=== PATIENT | male | born 1955 | race Caucasian/White ===

== ENCOUNTER 2019-02-07 16:10 | Inpatient (IN) | payer OTHER ==
[~2019-02-07] VITALS: Ht 172.7 cm; Wt 64.3 kg
[2019-02-07] VITALS (27 sets, daily range): BP systolic 59–136; BP diastolic 40–112
[~2019-02-07 16:10] MED LIST: ADVIL PM CAPLE1 EACH; ALPRAZOLAM 0.50.5 M1; B-COMPLEX-VITA1 EACH; BUSPAR 5 MG TABL5 M1 PO; COZAAR100 MG PO; DYAZIDE PO; FOLIC ACID 40400 MCG PO; HYDROCHLOROTH12.5 MG PO; LEVEMIR SUBQ; LOSARTAN POTAS100 MG PO; NORVASC10 MG PO; NOVOLOG100 UNIT/1; PEPTO-BISMOL262 M1; ZANTAC 150MG T150 M1
[2019-02-07 16:39] LABS: ABSOLUTE NEUTROPHILS 4.5 thou/uL (1.4-8.2); BASOPHILS 0.3 % (0.0-2.0); EOSINOPHILS 0.1 % (0.0-3.0); HEMOGLOBIN 13.1 gm/dL (14.0-18.0); LYMPHOCYTES 16.8 % (24.0-44.0); MCH 32.9 pg (26.0-34.0); MCHC 34.6 g/dL (28.0-37.0); MCV 95.1 fL (80.0-100.0); MONOCYTES 3.1 % (1.0-8.0); POLYS 79.7 % (36.0-66.0); RBC 3.99 mil/uL (4.50-6.00); RDW 12.3 % (10.5-14.5); WBC 5.6 thou/uL (4.0-11.0)
[2019-02-07 16:49] LABS: ALBUMIN 3.1 g/dL (3.4-5.0); CALCIUM 7.9 mg/dL (8.5-10.1); CREATININE 0.9 mg/dL (0.7-1.3); DIRECT BILIRUBIN 0.5 mg/dL (<0.1-0.3); MAGNESIUM 1.9 mg/dL (1.8-2.4); POTASSIUM 4.2 mmol/L (3.5-5.1); TOTAL BILIRUBIN 2.6 mg/dL (<0.1-1.0); TOTAL PROTEIN 5.7 g/dL (6.4-8.2)
[2019-02-07 16:54] LABS: AMP/METHAMP Negative (Negative); BARBITURATES Negative (Negative); BENZODIAZEPINES Negative (Negative); COCAINE Negative (Negative); METHADONE Negative (Negative); OPIATES Negative (Negative); PCP Negative (Negative)
[2019-02-07 17:03] LABS: PLATELET COUNT 87 thou/uL (150-400)
[2019-02-07 17:04] LABS: LARGE PLATELETS RARE
--- NOTE | 2019-02-07 17:22 | NUR ---
100MG ETOMIDATE IV 10MG SUCCS IV 25 AT THE GUM ALL ABOVE PER VERBAL ORDER FROM DR ROBLERO
[2019-02-07 19:02] LABS: BE(vivo) -5.5 mmol/L (-2 to +3); HCO3 17.3 mmol/L (22.0-26.0); PCO2 27.4 mmHg (35.0-45.0); PO2 113.4 mmHg (80.0-100.0); pH 7.419 (7.360-7.450); sO2 98.3 % (92.0-98.0)
--- NOTE | 2019-02-07 19:10 | NUR ---
PICC ORDERED PER TELEPHONE ORDER FROM DR CARMENCITA VALLE FOLLOWING TO ICU PICC RN AT BEDSIDE FOR PLACEMENT IN ICU REPORT GIVEN TO LILIA MORSE
--- NOTE | 2019-02-07 19:58 | 2DMMODE ---
[facility] [address] [place] [address] 2 D/M-MODE ECHOCARDIOGRAM Name: CHAVA MCBRIDE Room #: 243-P [facility]#: [id number] ������������� Admission: 02/07/19 ������������� Attend Phys: Tomas Randall Discharge: ��� ������������� ��� Date of : 57 Date of Service: [birth year] �� Report #: [id number] �������� ��������������������������������������������[id number] THIS REPORT FOR: //name// APPROVED REPORT Study performed: 02/07/2019 18:51:48 EXAM: Comprehensive 2D, Doppler, and color-flow Echocardiogram Patient Location: Bedside Room #: ICU Status: stat BSA: 1.58 HR: 107 bpm BP: 121/78 mmHg Rhythm: Tachycardia Other Information Study Quality: Adequate Technically limited study due to patient on ventilator, low parasternal window. Risk Factors: Cardiac Risk Factors: HTN, Smoking, ETOH Indications Elevated Troponin EKG Changes DTs 2D Dimensions IVSd: 7.98 (7-11mm) LVOT Diam: 19.00 (18-24mm) LVDd: 48.51 mm PWd: 10.80 (7-11mm) LVDs: 44.59 (25-40mm) LV Single Plane 4CH: 25.65 % LV Single Plane 2CH: 26.95 % Biplane EF: 25.4 % Volumes Left Atrial Volume (Systole) Single Plane 4CH: 20.74 mL Single Plane 2CH: 37.91 mL LA ESV Index: 21.00 mL/m2 Aortic Valve AoV Peak Pa.: 1.00 m/s [facility] [place] [address] [place] [address] 2 D/M-MODE ECHOCARDIOGRAM Name: RAECHAVA G Room #: 243-P [facility] .R.#: [id number] ������������� Admission: 02/07/19 ������������� Attend Phys: Tomas Randall Discharge: ��� ������������� ��� Date of : 57 Date of Service: 02/[birth year]191956 �� Report #: [id number] �������� ��������������������������������������������[id number] AO Peak Gr.: 3.99 mmHg LVOT Max P.29 mmHg LVOT Max V: 0.76 m/s TIFFANY Vmax: 2.08 cm2 Pulmonary Valve PV Peak Pa.: 0.76 m/s PV Peak Gr.: 2.32 mmHg Tricuspid Valve TR Peak Pa.: 2.07 m/s TR Peak Gr.: 17.20 mmHg Left Ventricle The left ventricle is normal size. Severe global hypokinesis. There is normal left ventricular wall thickness. Left ventricular systolic function is severely decreased. LVEF is 25%. This study is not technically sufficient to allow evaluation of the LV diastolic function. Right Ventricle The right ventricle is normal size. The right ventricular systolic function is normal. Atria The left atrium size is normal. The right atrium size is normal. Aortic Valve The aortic valve is normal in structure. No aortic regurgitation is present. There is no aortic valvular stenosis. Mitral Valve The mitral valve is normal in structure. There is no mitral valve regurgitation noted. No evidence of mitral valve stenosis. Tricuspid Valve The tricuspid valve is normal in structure. Mild tricuspid regurgitation. Tricuspid regurgitation jet measures 17 mmHg. Unable to assess PA pressure. Pulmonic Valve The pulmonary valve is normal in structure. There is no pulmonic valvular regurgitation. Great Vessels The aortic root is normal in size. Pt. on ventilator. IVC is normal in size. [facility] [place] [address] 2 D/M-MODE ECHOCARDIOGRAM Name: CHAVA MCBRIDE Room #: 243-P [facility] M.R.#: [id number] ������������� Admission: 02/07/19 ������������� Attend Phys: Tomas Randall Discharge: ��� ������������� ��� Date of : 57 Date of Service: 02/[birth year]/191956 �� Report #: [id number] �������� ��������������������������������������������[id number] Pericardium There is no pericardial effusion. <Conclusion> The left ventricle is normal size. LVEF is 25%. Severe global hypokinesis. The aortic valve is normal in structure. The mitral valve is normal in structure. The tricuspid valve is normal in structure. Mild tricuspid regurgitation. Tricuspid regurgitation jet measures 17 mmHg. Unable to assess PA pressure. The pulmonary valve is normal in structure. There is no pericardial effusion. ��������������������������������������������� <ELECTRONICALLY SIGNED> ���������������������������������������� By: Chris Rodriges MD ��������������������������������������������� [birth year] 58 Chris Rodriges MD /INF
--- NOTE | 2019-02-07 20:04 | NUR ---
RECEIVED ORDER FOR PICC, LABS REVIEVED, A CONSENT WAS OBTAINED BY LILIA OLIVER FOR THE ED. A PICC WAS PLACED PER PROTOCOL OF THE FACILITY BY STERILE FASHION. PLACEMENT WAS THEN VERIFIED VIA CXR. PICC WAS RELEASED FOR IMMEDIATE USE TO THE INSTITUTIONAL COMMODITY ANALYST.
[2019-02-08] VITALS (89 sets, daily range): BP systolic 71–153; BP diastolic 40–84
[2019-02-08 00:16] LABS: CREATININE 0.5 mg/dL (0.7-1.3)
[2019-02-08 00:25] LABS: POTASSIUM 2.3 mmol/L (3.5-5.1)
[2019-02-08 05:25] LABS: WBC 5.6 thou/uL (4.0-11.0)
[2019-02-08 05:28] LABS: ABSOLUTE NEUTROPHILS 4.5 thou/uL (1.4-8.2); BASOPHILS 0.7 % (0.0-2.0); EOSINOPHILS 0.4 % (0.0-3.0); HEMATOCRIT 36.9 % (42.0-52.0); LYMPHOCYTES 14.9 % (24.0-44.0); MCH 32.6 pg (26.0-34.0); MCHC 35.2 g/dL (28.0-37.0); MCV 92.7 fL (80.0-100.0); MONOCYTES 3.2 % (1.0-8.0); POLYS 80.8 % (36.0-66.0); RBC 3.98 mil/uL (4.50-6.00); RDW 12.5 % (10.5-14.5)
[2019-02-08 05:40] LABS: ALBUMIN 2.3 g/dL (3.4-5.0); CALCIUM 7.1 mg/dL (8.5-10.1); CREATININE 0.6 mg/dL (0.7-1.3); MAGNESIUM 1.3 mg/dL (1.8-2.4); TOTAL BILIRUBIN 1.7 mg/dL (<0.1-1.0); TOTAL PROTEIN 4.3 g/dL (6.4-8.2)
[2019-02-08 06:46] LABS: PLATELET COUNT 196 thou/uL (150-400)
--- NOTE | 2019-02-08 08:04 | NUR ---
PT ADMITTED TO ICU ROOM 243 at 1845. Pt intubated with #7.5 ETT, 25 cm at the teeth, on vent Tv 550, AC 14, Peep 5. FiO2 intially at 60% but able to titrate down through shift to 40%. O2 sat remains > 95%. Monitor has been sinus rhythm, occasional sinus tachycardia, with rates 70 to 110. OG remains patent to LIS, scant brown liquid drainage. Henderson patent; pt had 2950 cc out this shift. Pt remains on Versed gtt and bilateral soft wrist restraints. When sedation lightened pt will attempt to pull out ETT and OG as well as kicks legs over siderails of bed. Suctioning thin brown secretions from ETT about every 2-4 hours.
[2019-02-08 14:27] LABS: MAGNESIUM 1.8 mg/dL (1.8-2.4)
--- NOTE | 2019-02-08 21:30 | NUR ---
PATIENT ASSESSMENTS AND VITAL SIGNS DOCUMENTED. NURSE INFORMED PHYSICIAN OF HYPOTENSION, THEN CARDIOLOGY NOTIFIED. DOBUTAMINE GTT INITIATED. PATIENT HAS BEEN MORE CALM WITH PRECEDEX GTT, VERSED GTT HAS BEEN ABLE TO BE WEANED DOWN. GOAL IS TO TITRATE OFF OF VERSED. FAMILY UPDATED ABOUT PLAN OF CARE. HE WAS VERY AGGITATED AND RESTLESS THIS EARLY AM, HOWEVER HAS BEEN MORE CALM. HE DID FOLLOW COMMANDS THIS AM. PER CARDIOLOGY, PLAN IS TO KEEP HIM SEDATED FOR NOW UNTIL FINISH DETOX, THEN TO LIGHTEN UP SEDATION AND PROCEEDE WITH FUTURE TREATMENTS. HE HAS ADEQUATE URINE OUTPUT. ELECTROLYTE PROTOCOL IN PLACE AND POTASSIUM AND MAGNESIUM IS BEING REPLACED. PLAN OF CARE IS TO CONTINUE TO MONITOR PATIENT VITAL SIGNS AND ADJUST GTTS ACCORING TO PHYSICIAN ORDER.
[2019-02-09] VITALS (33 sets, daily range): BP systolic 108–165; BP diastolic 68–112
[2019-02-09 04:18] LABS: ALBUMIN 2.1 g/dL (3.4-5.0); CALCIUM 7.4 mg/dL (8.5-10.1); CREATININE 0.6 mg/dL (0.7-1.3); MAGNESIUM 1.5 mg/dL (1.8-2.4); POTASSIUM 3.6 mmol/L (3.5-5.1); TOTAL BILIRUBIN 1.5 mg/dL (<0.1-1.0); TOTAL PROTEIN 4.3 g/dL (6.4-8.2)
--- NOTE | 2019-02-09 04:20 | NUR ---
ASSUMED CARE OF PT AT 1900. PT SEDATED ON PRECEDEX AND VERSED GTT. SPOKE TO DR PENA AT APPROXIMATELY 2000. UPDATED ON PATIET'S STATUS. PLAN TO TITRATE VERSED GTT OFF AND LEAVE PT ON PRECEDEX GTT. PT CALM THROUGH OUT THE NIGHT. PT WITH BILATERAL SOFT WRIST RESTRAINS DUE TO IMPULSIVENESS. PT DID HAVE SOME PERIODS OF RESTLESSNESS AND MANAGED TO SIT UP A COUPLE OF TIMES IN BED. PT WAS GIVEN 4 MG OF MORPHINE AT 0203, DUE TO PT NODDING YES TO PAIN AND CPOT SCORE OF 5. PT PREVIOUSLY ASSESSED AT 0300 HE WAS CALM AND SLEEPING. AT 0325 VENT ALARMS WENT OFF. RN ASSESSED PT AND PT HAD MANAGED TO SELF EXTUBATE. RT CALLED STAT TO THE ROOM. PT O2 SAT 99-100% ON RA. PT PLACED ON 40% FACE SHIELD AT THAT TIME. PT TALKING. ALERT ONLY TO SELF. HE IS CONFUSED. DR PENA CALLED AND UPDATED AT 033. NO ORDERS GIVENAT THIS TIME. WILL CONTINUE TO MONITOR.
[2019-02-09 04:22] LABS: TROPONIN-I 1.31 ng/mL (<0.06)
--- NOTE | 2019-02-09 08:40 | EKG ---
[address] [address] ELECTROCARDIOGRAM REPORT Name: IMKE MCBRIDEALD Alex Room #: 243-P ADM IN M.R.#: [id number] ������������������ Admission: 02/07/19 ������������������ Attend Phys: Tomas Franco Discharge: ������������������ Date of : 57 Report #: [id number] ����������������������������������������������������������������� [id number] THIS REPORT FOR: //name// [facility] ED Test Date: 2019-02-07 Test Time: 16:27:28 Pat Name: CHAVA MCBRIDE Department: Room: 243 Gender: M Psychology Clinician: MADELINE : 1955 Requested By: Perri Jang Order Number: [id number] MD: Lb Frank Measurements Intervals [place] Rate: 127 P: 0 MD: 62 QRS: -58 QRSD: 107 T: 89 QT: 438 QTc: 638 Interpretive Statements Sinus tachycardia Inferior infarct, old Baseline wander in lead(s) III,aVF Electronically Signed On 02-09-2019 8:40:11 CDT by Lb Frank [email or web address] ��������������������������������������������� <ELECTRONICALLY SIGNED> ���������������������������������������� By: Lb Frank MD ��������������������������������������������� 02/09/19 0840 D: [id number] Lb Frank MD /NIKA
--- NOTE | 2019-02-09 16:15 | NUR ---
ASSUMED CARE OF PT AT 0645. SELF EXTUBATED OVER NIGHT. MARICEL ROOM AIR. PASSED SWALLOW EVAL WITH ST, START PO DIET AND MEDS. CONFUSED BUT REORIENTS. DC RESTRAINTS. WILL WEAN OF DOBUTAMINE TO KEEP SBP >100. PT CONCERNED ABOUT MISSING A MEETING WITH A BANKER TOMORROW, USING PHONE AT BEDSIDE TO CALL EX .
--- NOTE | 2019-02-09 17:23 | NUR ---
PT ADMITTED RELATED TO SYNCOPAL EPISODE, ETOH WITHDRAWL, ELEVATED TROPONIN. CM REVIEWED CHART AND SPOKE WITH CARE TEAM. CM SPOKE WIHT PT'S EX-. SHE INDICATED THAT PT RESIDES IN A HOUSE ALONE. 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 SHE INDICATED PT HAS HISTORY OF ETOH ABUSE. SHE INDICATED THAT SHE WOULD ANTICIPATE PT DISCHARGING HOME ONCE MEDICALLY STABLE AND THAT SHE MAY BE WILLING FOR PT TO COME STAY WITH HER IF NEEDED. CM TO FOLLOW INDICATED WITH DC PLANNING.
[2019-02-10] VITALS (22 sets, daily range): BP systolic 107–140; BP diastolic 65–87
[2019-02-10 04:45] LABS: CALCIUM 7.5 mg/dL (8.5-10.1); CREATININE 0.6 mg/dL (0.7-1.3); PHOSPHORUS 1.2 mg/dL (2.5-4.9); POTASSIUM 3.6 mmol/L (3.5-5.1)
--- NOTE | 2019-02-10 05:03 | NUR ---
ASSUMED CARE OF PT AT 1900. PT INITIALLY ONLY ORIENTED TO SELF. PT DOES WAKE UP VERY STARTLED AND ANXIETY QUICKLY INCREASES AFTER THAT. AT 2340, RN WENT IN ROOM TO CHECK BLOOD SUGAR. RN INFORMED PT OF WHAT HE WAS PERFORMING AND PT WAS DROWSY SLEEPING AND REPLIED "OK." PT BECAME VERY RESTLESS AFTER BLOOD SUGAR WAS CHECKED. PT REQUESTED THAT WE CALL SECURITY. SECURITY WAS CALLED TO THE ROOM. RNPRECIOUS, ASSISTED PT WITH MEDICATIONS AND INSULIN ADMINISTRATION. PT's FAMILY WAS CONTACTED AND THEY SPOKE TO PT. PT RESPONDED WELL TO THIS. HE HAS REMAINED CALMED SINCE INCIDENT. WILL CONTINEU TO MONITOR.
--- NOTE | 2019-02-10 16:29 | NUR ---
CARE TEAM INDICATED PT IS PROGRESSING TOWARD GOAL OD DISCHARGE. CM TO FOLLOW INDICATED WITH DC PLANNING.
--- NOTE | 2019-02-10 19:30 | NUR ---
SHIFT SUMMARY: PT PROGRESSING, DOBUTAMINE AND PRECEDEX OFF, LIBRIUM PO, ALERT/ORIENTED, REDIRECTABLE WHEN IRRITABLE OR IMPULSIVE, SB/SR, ROOM AIR, TOLERATING MEALS, ADEQUATE URINE PER FARIA. BLANQUITA MCPHERSON- CALLED TO INQUIRE REGARDING PT STATUS AND WAS ALSO PRESENT. UPDATED ON CARES. PT VERY RESPONSIVE TO SUPPORT GIVEN BY BLANQUITA.
[2019-02-11] VITALS (26 sets, daily range): BP systolic 109–160; BP diastolic 66–97
--- NOTE | 2019-02-11 06:40 | NUR ---
SHIFT NOTE PT ASSESSMENT AND VITALS ORDERED. PT TURNS SELF IN BED. PT HAS NO COMPLAINTS OF PAIN, SO, CHEST PAIN, AND NV. PT ON RA. PT STEADY STAND BY ASSIST TO BSC. WILL CONTINUE TO MONITOR TILL THE END OF THE SHIFT.
--- NOTE | 2019-02-11 15:37 | NUR ---
PROGRESSING. ALERT/ORIENTED, COOPERATIVE, NO TREMORS/SEIZURE ACTIVITY, ST/SR, ROOM AIR WITH RESP EVEN AND UNLABORED, GOOD APPETITE, VOIDING PER URINAL OR TOILET, LOOSE STOOLS. BLANQUITA, EX PRESENT AND PROVIDING SUPPORT.
[2019-02-11 17:38] LABS: HEMOGLOBIN 12.4 gm/dL (14.0-18.0); MCH 32.8 pg (26.0-34.0); MCHC 35.4 g/dL (28.0-37.0); MCV 92.7 fL (80.0-100.0); RBC 3.77 mil/uL (4.50-6.00); RDW 12.5 % (10.5-14.5); WBC 3.6 thou/uL (4.0-11.0)
[2019-02-11 17:51] LABS: ALBUMIN 2.2 g/dL (3.4-5.0); CALCIUM 7.6 mg/dL (8.5-10.1); CREATININE 0.6 mg/dL (0.7-1.3); TOTAL BILIRUBIN 1.3 mg/dL (<0.1-1.0); TOTAL PROTEIN 4.8 g/dL (6.4-8.2)
[2019-02-11 18:00] LABS: POTASSIUM 2.9 mmol/L (3.5-5.1)
--- NOTE | 2019-02-11 18:22 | NUR ---
REPORT TO LILIA CURIEL. CRITICAL K 2.9- KCL IV INFUSING. PT TRANSFERRED PER WHEELCHAIR TO CCU RM #[id number].
--- NOTE | 2019-02-11 19:33 | NUR ---
ASSUMED CARE AT 1830, TRANSFERRED FROM ICU AT 1830. PATIENT WAS ORINETED TO THE ROOM. ZOSYN AND POTTASIUM STARTED THROUGH THE RIGHT UPPER ARM PICC LINE. BED ALARM ON, ON TELEETRY MONITORING. REPORT GIVEN TO NIGHT NURSE. WILL CONTINUIE TO ASSESS AND ASSIST WITH ADLs NEEDED.
[2019-02-12 04:45] VITALS: BP 145/91
[2019-02-12 04:47] LABS: MAGNESIUM 1.3 mg/dL (1.8-2.4)
[2019-02-12 04:49] LABS: POTASSIUM 2.7 mmol/L (3.5-5.1)
--- NOTE | 2019-02-12 05:45 | NUR ---
PT STILL HAVING EPISODE OF CONFUSION AND FOERGETFUL, WILL BE NPO TOMORROW FOR CARDIAC CATH, STILL HAS LOTS OF QUESTIONS, CONSENT NOT SIGNED YET, POTASSIUM DROPPED TO 2.7, PER LYTES PROTOCOL IS BEING REPLACED, MG IS 1.3, PER LYTES PROTOCOL WAS GIVEN PO MAGNESIUM. UP WITH ASSIST, GAIT SLOW, VOIDING IN THE TOILET, MONITORED.
[2019-02-12 07:25] VITALS: BP 166/97
[2019-02-12 11:05] VITALS: BP 138/92
[2019-02-12 15:30] VITALS: BP 118/82
[2019-02-12 17:56] LABS: MAGNESIUM 1.5 mg/dL (1.8-2.4); POTASSIUM 3.4 mmol/L (3.5-5.1)
--- NOTE | 2019-02-12 19:29 | NUR ---
ASSUMED CARE OF PATIENT AT 0700. PATIENT IS SOMEWHAT CONFUSED AT TIMES, HOWEVER HE IS A&O X 4. PATIENT IS IMPULSIVE, BED ALARM REMAINED ON AT ALL TIMES. PATIENT AMBULATES TO THE BATHROOM, BUT UNSTEADY. PATIENT PULLED OUT HIS PICC LINE IN THE SHOWER, STATING THAT HE THOUGHT IT SHOULD BE PULLED OUT. THIS WAS NOT NOTICED UNTIL AFTER THE PATIENT WAS OUT OF THE SHOWER, NO BLEEDING WAS PRESENT. STERILE GAUZE WAS APPLIED WITH PRESSURE AND SECURED WITH TAPE. PATIENT'S POTASSIUM AND MAGNESIUM WAS SUPPLEMENTED. PATIENT IS SCHEDULED FOR A CARDIAC CATH TOMORROW AND ANXIOUS FOR THIS TEST. PATIENT TO CONTINUE WITH POC.
[2019-02-12 20:00] VITALS: BP 130/90
[2019-02-13 00:08] VITALS: BP 197/92
[2019-02-13 04:00] VITALS: BP 120/75
--- NOTE | 2019-02-13 05:28 | NUR ---
PATIENT ALERT AND ORIENTED X4. DENIES PAIN. ANXIOUS ABOUT CARDIAC ACTH. HAS BEEN NPO SINCE [place]. GETS UP WITH SBA. ACCU CHECK 190, 3UNITS LISPRO INSULIN GIVEN. SLEPT MOST OF THE NIGHT.
[2019-02-13 07:20] VITALS: BP 126/77
[2019-02-13 09:52] VITALS: BP 126/77
[2019-02-13] MEDS ORDERED: COREG6.25 MG PO (11:15)
[2019-02-13] MEDS ORDERED: AUGMENTIN 875-1 EACH PO (11:15)
[2019-02-13] MEDS ORDERED: KEPPRA 500 MG500 M1 PO (11:16)
[2019-02-13] MEDS ORDERED: PRINIVIL20 MG PO (11:16)
[2019-02-13] MEDS ORDERED: LEVEMIR SUBQ (11:17)
--- NOTE | 2019-02-13 12:02 | NUR ---
PT ANXIOUS TO LEAVE HOSPITAL AND DOES NOT WANT TO HAVE CARDIAC CATH TODAY. HE REPORTS THAT HE HAS PERSONAL BUSINESS AND LEGAL APPT ON SATURDAY AM AND HE HAS TO MAKE THOSE APPTS. HE OWES A BUSINESS AND PROPERTY AND DOES NOT THINK HE WILL QUALIFY FOR [place] MEDICA[place]. HE WILL F/U WITH SS DISABILITY AN OUTPT IF HIS DR DEEMS APPROPRIATE. HE CAN GET HIS [employer] PRIVATE PAY AND HAS A RIDE HOME WITH HIS EX BLANQUITA THIS AM. NURSING HAS NOTIFIED THE ATTENDING. PT TO LEAVE AMA.
--- NOTE | 2019-02-13 12:41 | NUR ---
ASSUMED CARE OF PT AT APPROX 0700. PT IS LAERT AND ORIENTED X4, MONITORED ON TELE AND ABLE TO MAINTAIN 02 SAT >90 ON RA. DENIES PAIN AND SOA, EVEN NON LABORED BREATHING. PT IS VERY CONCERNED ABOUT GETTING CATH DONE AND STATES THAT IF IT IS NOT DONE BY 1100 HE WILL BE LEAVING AMA. I EDUCATED THE PATIENT ON THE IMPORTANCE OF HAVING PROCEDURE DONE AND THE BENEFITS OF HAVING IT DONE WHILE HE WAS ALREADY INPATIENT BUT PT IS ADAMENT THAT HE WILL LEAVE IF PROCEDURE IS NOT DONE BY 1100. PT REFUSED MID DAY VITAL SIGNS. CALLED PASTING MACHINE OFFBEARER APPROX 1030, WAS INFORMED BY PASTING MACHINE OFFBEARER STAFF THAT HE SHOULD BE DOWN THERE BY AROUND NOON HE WAS THE NEXT CASE. I INFORMED PT OF PLAN AND HE DENIED PLAN. PT DEMANDED PAPERWORK TO LEAVE. FILLED OUT AND SIGNED AMA PAPERWORK WITH PT. REMOVED TELE AND IV. PT DRESSED HIMSELF AND LEFT WITH HIS SIGNIFICANT OTHER VIA PRIVATE VEHICLE. PT AMBULATORY AT TIME OF DEPARTURE AND IN STABLE CONDITION. LEFT UNIT APPROX 1215.
== END 2019-02-13 12:25 | disposition left against medical advice (07) | DRG 208 ==
LOC: ER 16:10 → ICU 17:44 → EROBS 17:49 → ICU 17:49 → 2N 02-11 18:30
PROVIDERS: Emergency Medicine; Nurse Practitioner Acute Care; Nurse Practitioner Adult Health; ADMIT Hospitalist
PROC: 0BH17EZ Insertion of Endotracheal Airway into Trachea, Via Natural or Artificial Opening (ICD-10-PCS; principal; 2019-02-07)
PROC: 5A1945Z Respiratory Ventilation, 24-96 Consecutive Hours (ICD-10-PCS; principal; 2019-02-07)
PROC: 02HV33Z Insertion of Infusion Device into Superior Vena Cava, Percutaneous Approach (ICD-10-PCS; principal; 2019-02-07)
DX: J69.0 Pneumonitis due to inhalation of food and vomit (principal); I21.4 Non-ST elevation (NSTEMI) myocardial infarction; J96.00 Acute respiratory failure, unspecified whether with hypoxia or hypercapnia; E87.1 Hypo-osmolality and hyponatremia; F10.239 Alcohol dependence with withdrawal, unspecified; I50.22 Chronic systolic (congestive) heart failure; E46 Unspecified protein-calorie malnutrition; I42.9 Cardiomyopathy, unspecified; R74.0 Nonspecific elevation of levels of transaminase and lactic acid dehydrogenase [LDH]; Z53.21 Procedure and treatment not carried out due to patient leaving prior to being seen by health care provider; E87.6 Hypokalemia; F41.9 Anxiety disorder, unspecified; F17.210 Nicotine dependence, cigarettes, uncomplicated; I11.0 Hypertensive heart disease with heart failure; D64.9 Anemia, unspecified; R56.9 Unspecified convulsions; E87.8 Other disorders of electrolyte and fluid balance, not elsewhere classified; Z68.21 Body mass index [BMI] 21.0-21.9, adult
CPT/HCPCS: 10078; 10081; 27000